=== PATIENT | female | born 1990 | race Caucasian/White ===

== ENCOUNTER 2018-01-20 16:10 | Emergency (ER) | payer MEDICAID ==
[~2018-01-20] VITALS: Ht 162.6 cm; Wt 88.9 kg
[2018-01-20 16:19] VITALS: Ht 162.6 cm; Wt 88.9 kg
[2018-01-20 17:53] VITALS: BP 121/63
== END 2018-01-20 17:53 | disposition home or self-care (01) ==
LOC: ED 16:10
DX: S80.11XA Contusion of right lower leg, initial encounter (principal); S84.801A Injury of other nerves at lower leg level, right leg, initial encounter; W18.30XA Fall on same level, unspecified, initial encounter; Y93.89 Activity, other specified; Y99.8 Other external cause status; Y92.89 Other specified places as the place of occurrence of the external cause